=== PATIENT | female | born 1970 | race Caucasian/White ===

== ENCOUNTER 2018-08-08 14:09 | Emergency (ER) | payer OTHER ==
[~2018-08-08] VITALS: Ht 160 cm; Wt 54.5 kg
[2018-08-08 14:14] VITALS: Ht 160 cm; Wt 54.5 kg
[2018-08-08] MEDS ORDERED: LORAZEPAM 0.5 MG TAB PO ONE (18:00)
[2018-08-08] MEDS ORDERED: LORA-441 PO (19:15)
--- NOTE | 2018-08-08 19:19 | ERD ---
ER Documentation Chief Complaint Chief Complaint R89 fr home I FEEL SOB, speaking full sentences HPI 48-year-old female presents for shortness of breath times 1 day. She has a history of bipolar disorder and depression. She denies any chest pain or fever. She does state that she feels a little anxious currently. ROS All systems reviewed and are negative except as per history of present illness. Medications Home Meds Active Scripts Lorazepam* (Ativan*) 0.5 Mg Tablet, 0.5 MG PO Q8H PRN for ANXIETY, #10 TAB Prov:SHAWNA SALVADOR DO 08/08/18 Reported Medications [None] No Conflict Check 04/15/10 Allergies Allergies: Coded Allergies: No Known Allergy (Unverified , 06/18/12) PMhx/Soc History of Surgery: Yes (APPENDECTOMY, BREAST IMPLANTS) Anesthesia Reaction: No Hx Neurological Disorder: No Hx Respiratory Disorders: No Hx Cardiac Disorders: No Hx Psychiatric Problems: No Hx Miscellaneous Medical Probl: No Hx Alcohol Use: No Hx Substance Use: No Hx Tobacco Use: No Smoking Status: Never smoker Physical Exam Vitals Vital Signs Date Temp Pulse Resp B/P (MAP) Pulse Ox O2 O2 Flow FiO2 Time Delivery Rate 08/08/18 98.9 98 16 148/92 99 14:14 (110) Physical Exam Const: No acute distress Resp: Clear to auscultation bilaterally, speaking in full sentences, no use of accessory muscles Cardio: Regular rate and rhythm, no murmurs Abd: Soft, non tender, non distended. Normal bowel sounds Skin: No petechiae or rashes Back: No midline or flank tenderness Ext: No cyanosis, or edema Neur: Awake and alert Psych: Normal Mood and Affect Results 24 hrs Current Medications Medications Dose Sig/Feroz Start Time Status Last (Trade) Ordered Route PRN Stop Time Admin Dose Reason Admin Lorazepam 0.5 mg ONCE ONCE 08/08/18 DC 08/08/18 (Ativan) PO 18:00 17:46 08/08/18 18:01 Procedures/MDM Medical Decision Making: Differential diagnosis includes but not limited to anxiety, pneumonia, PE, ACS, arrhythmia Patient appeared well on physical exam. Patient came in complaining of shortness of breath however she was breathing comfortably, no use of accessory muscles. O2 saturation was 99% on room air. ED course: Patient was given Ativan. Symptoms improved with treatment. Prescription(s): Patient given prescription for Ativan short course low-dose. Patient advised to follow up with PCP in 1-2 days. Patient advised to return to ED for new or worsening symptoms. Patient stable on discharge from the ED. Disclaimer: Inadvertent spelling and grammatical errors are likely due to EHR/dictation software use and do not reflect on the overall quality of patient care. Also, please note that the electronic time recorded on this note does not necessarily reflect the actual time of the patient encounter. Departure Diagnosis: Primary Impression: Shortness of breath Condition: Fair Patient Instructions: Coping with Shortness of Breath: Controlling Stress Referrals: [facility] YOU HAVE RECEIVED A MEDICAL SCREENING EXAM AND THE RESULTS INDICATE THAT YOU DO NOT HAVE A CONDITION THAT REQUIRES URGENT TREATMENT IN THE EMERGENCY DEPARTMENT. FURTHER EVALUATION AND TREATMENT OF YOUR CONDITION CAN WAIT UNTIL YOU ARE SEEN IN YOUR DOCTORS OFFICE WITHIN THE NEXT 1-2 DAYS. IT IS YOUR RESPONSIBILITY TO MAKE AN APPOINTMENT FOR FOLOW-UP CARE. IF YOU HAVE A PRIMARY DOCTOR --you should call your primary doctor and schedule an appointment IF YOU DO NOT HAVE A PRIMARY DOCTOR YOU CAN CALL OUR PHYSICIAN REFERRAL HOTLINE AT IF YOU CAN NOT AFFORD TO SEE A PHYSICIAN YOU CAN CHOSE FROM THE FOLLOWING [facility] [address] [facility]. [facility] [address] [facility]. [facility] [address] [facility] [facility] [address] [facility]. [facility] [address] [facility]. [facility]. [address] Additional Instructions: Call your primary care doctor TOMORROW for an appointment during the next 1-2 days.See the doctor sooner or return here if your condition worsens before your appointment time. SHAWNA SALVADOR DO Aug 08, 2018 19:19
[2018-08-08 19:28] VITALS: BP 144/91; PULSE 100; RESP 18
== END 2018-08-08 19:30 | disposition home or self-care (01) ==
LOC: FTE 14:09
DX: R06.02 Shortness of breath (principal)
CPT/HCPCS: 93005; Z7502; Z7610